=== PATIENT | male | born 1945 | race Caucasian/White ===

== ENCOUNTER 2018-03-17 07:40 | Day surgery (SDC) | payer OTHER ==
[2018-03-17] VITALS (13 sets, daily range): BP systolic 131–159; BP diastolic 66–88; PULSE 54–84; RESP 18–20; TEMP 97–97.9; O2SAT 93–100
[~2018-03-17] VITALS: Ht 170.2 cm; Wt 123.7 kg
[~2018-03-17 07:40] MED LIST: BETA80TA PO; CETI-1 PO; COMMODE 3-IN-11 MIS; FINA5TAB2 PO; FURO20TA PO; GETGO ROLLING W1 MI1; HYDR-3516 PO; LANTUS2P SQ; LIPI80TA PO; MECL1TAB42 PO; METF500 PO; MONT10TA2 PO; NEUR100C PO; Nystatin Powder TOPICAL; PERI PO; POTA20TA5 PO; PRAD150C PO; REST15CA PO; TUB TRANSFER BO1 MIS; WHEEMIS3
[2018-03-17] MEDS ORDERED: METOPROLOL TARTRATE 25 MG TAB PO PRN (08:15)
[2018-03-17] MEDS ORDERED: POVIDONE IODINE 5% (ANTISEPSIS KIT) 4 APPLICATIONS EACH NARE PRN (08:15)
[2018-03-17] MEDS ORDERED: LORazepam 1 MG TAB SL SCH (08:15)
[2018-03-17] MEDS ORDERED: LACTATED RINGER'S 1000 ML IV PRN (08:15)
[2018-03-17] MEDS ORDERED: CHLORHEXIDINE GLUCONATE 2 % 1 PACK (2 CLOTHS) TOPICAL PRN (08:15)
[2018-03-17] MEDS ORDERED: SODIUM CHLORID 0.9% 500 ML IV PRN (08:15)
[2018-03-17] MEDS ORDERED: CARI1TAB45 PO (08:35)
[2018-03-17] MEDS ORDERED: FLUT1SPR5 EACH NARE (08:35)
[2018-03-17] MEDS ORDERED: VENTAER INH (08:35)
[2018-03-17] MEDS ORDERED: OMEP20TA93 PO (08:35)
[2018-03-17] MEDS ORDERED: FURO40TA PO (08:35)
[2018-03-17] MEDS ORDERED: GABA300C5 PO (08:35)
[2018-03-17 08:42] LABS: BASOPHIL # 0.1 TH/MM3 (0-0.2); BASOPHIL % 1.8 % (0.0-2.0); EOSINOPHIL # 0.3 TH/MM3 (0-0.4); EOSINOPHIL % 5.3 % (0.0-4.0); HEMATOCRIT 30.7 % (39.0-51.0); HEMOGLOBIN 9.5 GM/DL (13.0-17.0); LYMPH % 23.2 % (9.0-44.0); LYMPHOCYTE # 1.2 TH/MM3 (1.0-4.8); MEAN CELL VOLUME 74.6 FL (80.0-100.0); MEAN CORPUSCULAR HGB CONC 30.9 % (32.0-36.0); MEAN PLATELET VOLUME 9.4 FL (7.0-11.0); MONO % 10.2 % (0.0-8.0); MONOCYTE # 0.5 TH/MM3 (0-0.9); NEUT % 59.5 % (16.0-70.0); PLATELET COUNT 222 TH/MM3 (150-450); RED BLOOD COUNT 4.12 MIL/MM3 (4.50-5.90); RED CELL DISTRIBUTION WIDTH 27.7 % (11.6-17.2); WHITE BLOOD COUNT 5.1 TH/MM3 (4.0-11.0)
[2018-03-17 08:52] LABS: INTERNATIONAL NORMALIZED RATIO 1.2 RATIO; PROTHROMBIN TIME - PATIENT 12.3 SEC (9.8-11.6)
[2018-03-17 09:05] LABS: CREATININE 1.56 MG/DL (0.60-1.30)
[2018-03-17 09:25] LABS: ACANTHOCYTES OCC (NORMAL); OVALOCYTES 1+ (NORMAL)
[2018-03-17] MEDS ORDERED: HEPARIN-NS/PF FLUSH BAG 2,000 ML IV FLUSH ONE (10:39)
[2018-03-17] MEDS ORDERED: FUROSEMIDE 40 MG/4 ML VIAL ONE (10:46)
[2018-03-17] MEDS ORDERED: HEPARIN SODIUM - IV 10,000 UNITS/10 ML VIAL ONE (10:46)
[2018-03-17] MEDS ORDERED: HEPARIN-D5W 25,000 U/250 ML 250 ML ONE (10:46)
[2018-03-17] MEDS ORDERED: ISOPROTERENOL INJ PREMIX 50 ML IV ONE (10:46)
[2018-03-17] MEDS ORDERED: PROTAMINE SULFATE 50 MG/5 ML VIAL ONE (10:46)
[2018-03-17] MEDS ORDERED: LEVOFLOXACIN 500 MG PREMIX INJ 100 ML IV ONE (11:15)
[2018-03-17] MEDS ORDERED: GLYCOPYRROLATE 1 MG/5 ML SYRINGE IV PUSH ONE (12:00)
[2018-03-17] MEDS ORDERED: PROPOFOL 200 MG/20 ML AMP IV ONE (12:00)
[2018-03-17] MEDS ORDERED: NEOSTIGMINE 5 MG/5 ML SYRINGE IV PUSH ONE (12:00)
[2018-03-17] MEDS ORDERED: ONDANSETRON HCL 4 MG/2 ML VIAL IV ONE (12:00)
[2018-03-17] MEDS ORDERED: PHENYLEPH/NS 1000 MCG/10 ML SYR IV ONE (12:00)
[2018-03-17] MEDS ORDERED: ROCURONIUM INJ 50 MG/5 ML SYRINGE IV PUSH ONE (12:00)
[2018-03-17] MEDS ORDERED: LIDOCAINE HCL 1% PF 5 ML SYRINGE OTHER ONE (12:00)
--- NOTE | 2018-03-17 13:41 | CATHPROC ---
Patient Name: JOBY CAMPBELL Study #: [id number] Initial MD: Brittney Colby Date of : 1945 Study Date: 03/17/2018 Cardiac Catheterization Report 03/17/2018 4:36:54 PM Financial #: [id number] 1 of 11 Patient Name: JOBY CAMPBELL Study #: [id number] Initial MD: Brittney Colby Date of : 1945 Study Date: 03/17/2018 Entire Case Report Patient Information Patient Name JOBY CAMPBELL Date of 1945 Age 72 years Financial # [id number] Gender M AlternateID Lab Number 2 Room Number DC07 Height (in) 67.0 Height (cm) 170.2 BSA 2.31 Weight (lbs) 272.4 Weight (kg) 123.8 Patient Address/Phone Number Home Address [facility] Home Phone Number [phone] [facility] [id number] Study Information Study Number Admission Scheduled Start Study Start [id number] Mar 17 2018 7:40AM 03/17/2018 Mar 17 2018 10:27AM [place] [facility] Electrophysiology Study Admit Source Facility Department Other [facility] - Prosecuting Attorney Physician and Clinical Staff Initial Brittney Fatima Customer Operations Representative Casandra Smith,RT(R) TECH2 Customer Operations Representative Kenzie Connor,ROUGHER FOR CEMENT TECH2 Other Anesthesia, SMELTER LINER Recorder Denisa Beckford,RN Recorder Lola Aldrich,RN Recorder Christ Beverly,RN Scrub Curry Best,RT(R) Procedures Performed Procedure Location (Site) Vessel Name Ablation Procedure Cardioversion ICE CATHETER INSERT RA Atruim RF Ablation LT. ATRIUM LT. ATRIUM Equipment 03/17/2018 4:36:54 PM Financial #: [id number] 2 of 11 Patient Name: JOBY CAMPBELL Study #: [id number] Initial MD: Brittney Colby Date of : 1945 Study Date: 03/17/2018 Time Professor Of Visual Arts Description Size Mfg Part Number Used/Scraped NEEDLE, TRANSSEPTAL NRG 98 [id number] 11:00 [facility] Used C1 *[id number] [employer]/ EP [id number] 11:00 KIT, TRANSDUCER / AFIB Used PACER *[id number] CATHETER, TACTICATH ABLAT BUNDLE 11:00 BUNDLE-[facility]. CLIF Used 65 BUNDLE *[id number]- BUNDLE [id number] CATHETER, FR7 OPTIMA SPIRAL 12:20 BUND[facility]. CLIF FR7 *[id number]- Used BUNDLE BUNDLE [id number] 11:00 BUNDLE-[employer]. CLIF CATHETER, JSN, QUAD BUNDLE FR 5 *[id number]- Used BUNDLE [id number] 11:00 BUNDLE-[employer]. CLIF CATHETER, JSN, QUAD BUNDLE FR 5 *[id number]- Used BUNDLE 52728-[id number] SET, COOL POINT TUBING 11:00 BUNDLE-[facility]. CLIF *[id number]- Used BUNDLE BUNDLE SHEATH, FR8.5 STEERABLE SM 11:00 BUNDLE-[facility]. CLIF 71CM [id number] Used 71CM BUNDLE [id number] 13:13 CARDIVA MEDICAL VASCADE, FR5 CLOSURE SYSTEM FR 5 Used *[id number] 13:13 CARDIVA MEDICAL VASCADE, FR6 CLOSURE SYSTEM FR 6\\7 Used *[id number] 13:13 CARDIVA MEDICAL VASCADE, FR6 CLOSURE SYSTEM FR 6\\7 Used *[id number] 13:13 CARDIVA MEDICAL VASCADE, FR6 CLOSURE SYSTEM FR 6\\7 Used *[id number] 13:13 CARDIVA MEDICAL VASCADE, FR6 CLOSURE SYSTEM FR 6\\7 Used *[id number] COVER, TRANSDUCER CABLE 612-113 11:00 [employer] Used ACUNAV *[id number] 11:00 CORDIS/PACER SHEATH, FR10 JARED 11CM FR 10 Used *[id number] 11:00 CORDIS/PACER SHEATH, FR9 JARED 11CM FR 9 [id number] Used [id number] 11:00 MED[employer] PACK, CCL CUSTOM * Used *1123411 11:00 MEDLINE PACER AVILA, LIMB * 2530 *[id number] Used 11:10 [employer] MEDICAL SHEATH, FR5.5 PRELUDE 11CM FR 5 [id number] Used [id number] 11:00 NAMIC TUBING, HIGH PRESSURE 48" 48" Used *[id number] 11:00 NAMIC TUBING, HIGH PRESSURE 48" 48" Used *[id number] 11:00 VENTURA MEDICAL BLANKET,WARM AIR CCL * Used *[id number] [id number] 11:00 [facility] MEDICAL ELECTRODE KIT, IRIS X SURFACE * Used *[id number] 285326 11:00 [facility] MEDICAL SHEATH, EPS, FR6 FAST CATH FR 6 Used *[id number] 11:00 [facility] MEDICAL SHEATH, EPS, FR7 FAST CATH FR 7 [id number] Used 03/17/2018 4:36:54 PM Financial #: [id number] Patient Name: JOBY CAMPBELL Study #: [id number] Initial MD: Brittney Colby Date of : 1945 Study Date: 03/17/2018 783263 11:00 [facility] MEDICAL SHEATH, EPS, FR8 FAST CATH FR 8 Used *[id number] 12:26 [facility] MEDICAL SHEATH, FR8.5 SL0 067169 Used CATHETER, ACUNAV FR10 ICE [id number] 11:58 ETHAN FR 10 Used (ETHAN) *[id number] [facility] PAD, ELECTROSURGICAL 11:00 * [id number] *[id number] Used SURGICAL GROUNDING (BLUE) Insurance Information Insurance Payor Private Health Insurance Third Republican Third Republican Number [employer] CHOICE PPO HUMCRPPO History: Allergies Allergy Reaction latex slight rash History: Risk Factors Family History of Hypertension Dyslipidemia Premature CAD Yes Yes Yes Cerebrovascular Chronic Lung Diabetes Diabetes Therapy Disease Disease Labs Hgb (g/dl) Hct (%) RBC (MIL/MM3) WBC (l/cumm) Platelets (thousands) 11.60-17.00 35.00-51.00 4.00-5.90 4.00-11.00 150.00-450.00 9.5 30.7 4.1 5.1 222 Glucose (mg/dl) BUN (mg/dl) Creatinine (mg/dl) BUN:Creatinine (1:x) 74.00-106.00 7.00-18.00 0.50-1.30 10.00-20.00 141 24 1.6 15 Na (meq/l) K (meq/l) 136.00-145.00 3.50-5.10 141 4.2 INR (PTT:PT) 0.90-1.10 1.2 Medication 03/17/2018 4:36:54 PM Financial #: [id number] Patient Name: JOBY CAMPBELL Study #: [id number] Initial MD: Brittney Colby Date of : 1945 Study Date: 03/17/2018 Medication Total Dose (Bolus/Oral) Medication Total Dosage/Unit 1% XYLOCAINE 40 mL HEPARIN 90671 units PROTAMINE 40 mg Medications (Bolus/Oral) Medication Time Given Dosage/Unit Administered By Reason 1% XYLOCAINE 03/17/2018 11:50:33 AM 20 mL Brittney Colby 20 mL 1% XYLOCAINE given in lab by Brittney Colby in Left Groin via Subcutaneous. Ordered by Nader Colby 1% XYLOCAINE 03/17/2018 11:54:29 AM 20 mL Brittney Colby 20 mL 1% XYLOCAINE given in lab by Brittney Colby in Right Groin via Subcutaneous. Ordered by Sam Colby. HEPARIN 03/17/2018 12:01:00 PM 5000 units Anesthesia, SMELTER LINER 5000 units HEPARIN given in lab by Anesthesia, SMELTER LINER via Peripheral IV. Ordered by Brittney Colby. HEPARIN 03/17/2018 12:12:52 PM 2000 units Anesthesia, SMELTER LINER 2000 units HEPARIN given in lab by Anesthesia, SMELTER LINER via Peripheral IV. Ordered by Brittney Colby. HEPARIN 03/17/2018 12:25:33 PM 2000 units Anesthesia, SMELTER LINER 2000 units HEPARIN given in lab by Anesthesia, SMELTER LINER via Peripheral IV. Ordered by Brittney Colby. HEPARIN 03/17/2018 12:40:01 PM 3000 units Anesthesia, SMELTER LINER As per physicians v erbal order 3000 units HEPARIN given in lab by Anesthesia, SMELTER LINER via Peripheral IV. Ordered by Brittney Colby. Reas on: As per physicians verbal order. HEPARIN 03/17/2018 12:53:52 PM 4000 units Anesthesia, SMELTER LINER As per physicians v erbal order 4000 units HEPARIN given in lab by Anesthesia, SMELTER LINER via Peripheral IV. Ordered by Brittney Colby. Reas on: As per physicians verbal order. PROTAMINE 03/17/2018 1:09:12 PM 40 mg Anesthesia, SMELTER LINER 40 mg PROTAMINE given in lab by Anesthesia, SMELTER LINER. Ordered by Brittney Colby. Medication (Drip) Medication Time Given Dosage/Unit Concentration/Unit Diluent (ml) Solution ISUPREL 03/17/2018 12:53:54 PM 5 mcg/min 1 mg 250 NaCl .9 5 mcg/min ISUPREL given in lab by Anesthesia, SMELTER LINER via Peripheral IV. Pump/Drip Flow = 75 ml/hr using NaCl .9 with a concentration of 1 mg in 250 ml. Ordered by Brittney Colby. LEVAQUIN 03/17/2018 11:15:33 AM 100 mL/hr 500 100 NaCl .9 100 mL/hr LEVAQUIN given in lab by Anesthesia, SMELTER LINER via Peripheral IV. Pump/Drip Flow = 0 ml/hr using NaCl .9 with a concentration of 500 in 100 ml. Ordered by Brittney Colby. Reason: As per physicians verbal order. FOR MEDELLIN CATHETER INSERTION 03/17/2018 4:36:54 PM Financial #: [id number] Patient Name: JOBY CAMPBELL Study #: [id number] Initial MD: Brittney Colby Date of : 1945 Study Date: 03/17/2018 Initial Case Assessment Cardiovascular HR Rhythm NIBP 103 AF 154/105 Edema Present Skin color Skin Moderate Flush Warm Dry Circulatory - Right Pulses Dorsalis Pedis 1 Scale (0,1,2,3,4,d) Circulatory - Left Pulses Dorsalis Pedis 1 Scale (0,1,2,3,4,d) Circulatory - Lower Extremities Color Lower Right Color Lower Left Normal Normal Neurological State Oriented to time-place- Alert Moves all extremities person Comment: 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 Respiration - General Respiration Rate SpO2 (%) (B/min) 20 96 03/17/2018 4:36:54 PM Financial #: [id number] Patient Name: JOBY CAMPBELL Study #: [id number] Initial MD: Brittney Colby Date of : 1945 Study Date: 03/17/2018 Final Case Assessment Cardiovascular HR Rhythm NIBP Chest Pain 92 sr 121/72 0 Edema Present Skin color Skin Severe Normal Warm Dry Circulatory - Right Pulses Dorsalis Pedis 1 Scale (0,1,2,3,4,d) Circulatory - Left Pulses Dorsalis Pedis 1 Scale (0,1,2,3,4,d) Circulatory - Lower Extremities Color Lower Right Color Lower Left Normal Normal Respiration - General Respiration Rate SpO2 (%) O2 (lpm) (B/min) 16 100 6 Chronological Log Time Study Chronological Log 10:44:47 Patient arrived via Bed. 10:44:48 Patient Name, D.O.B, / Armband Verified By R.N. 10:44:49 Consent signed by the physician and the patient and verified by the Prosecuting Attorney staff. 10:44:50 Pre-op and post- op instructions given; patient acknowledges understanding of instructions. 10:44:50 Verbal Stimulation=2 Physical Stimulation=2 Airway=2 Respiration=2 TOTAL=8. (0=absent, 1=li mited, 2=present) 10:44:51 Anesthesia at bedside. Assumes care of patient. 10:44:52 History and physical on the chart. 10:44:53 Patient has been NPO for More than 6Hrs. Skin Breakdown-BLE 4+edema with redness/warmth (cellulitis). Rt elbow to lower forearm red rash present. left groin 10:44:54 reddened. 10:44:57 Patient Warmer Placed on the Table. 03/17/2018 4:36:54 PM Financial #: [id number] 7 of 11 Patient Name: JOBY CAMPBELL Study #: [id number] Initial MD: Brittney Colby Date of : 1945 Study Date: 03/17/2018 10:44:59 Disposable Defibrillator Pads Placed On Patient. 10:45:00 A # 20 IV was noted in the Antecubital (right). Grade = 0 0.9% NaCl @ KVO 10:45:01 A # 20 IV was noted in the Antecubital (left). Grade = 0 0.9% NaCl @ KVO 10:53:16 Opal Prominences Protected Assessment: Initial Case Right Pulses: Juan Diego Ped=1 10:53:21 Left Pulses: Juan Diego Ped=1 Lower Right Extremities: Color=reddened calves bilaterally 10:53:24 Table restraints applied according to hospital policy 11:05:19 Anesthesiologist present for intubation. 11:10:33 Indwelling # 16FR [place] catheter inserted aseptically by MM and draining clear yellow urine to bedside drainage. 11:11:07 Bilateral groins prepped with 2% chlorhexidine. 11:14:28 A sterile drape was applied after a 3 minute drying time. 100 mL/hr LEVAQUIN given in lab by Anesthesia, SMELTER LINER via Peripheral IV. Pump/Drip Flow = 0 ml/hr using NaCl .9 with 11:15:33 a concentration of 500 in 100 ml. Ordered by Brittney Colby. Reason: As per physicians favian hawkins order. FOR MEDELLIN CATHETER INSERTION 11:16:35 MD paged 11:19:59 MD responded 11:38:44 MD arrived. Time Out. Correct patient, procedure, procedure equipment, site and side verified with physicia n present. Time 11:44:36 concurred by MD, individual staff and SMELTER LINER. Time Out #2 - Consents verified, patient in correct position, all results are labled and displa yed, safety precautions 11:44:38 taken, antibiotics administered. Time out concurred by MD, individual staff and SMELTER LINER in procedu re 11:44:40 Case Start 11:44:45 DENISSE in Progress 11:46:53 DENISSE Complete 11:50:33 20 mL 1% XYLOCAINE given in lab by Brittney Colby in Left Groin via Subcutaneous. Ordered by Brittney Colby. 11:50:46 Vascular access was obtained in the Fem Vein (left). 11:50:56 A SHEATH, EPS, FR7 FAST CATH FR 7 was advanced into the Fem Vein (left) using the Modified Seldinger technique. 11:51:36 A SHEATH, EPS, FR6 FAST CATH FR 6 was advanced into the Fem Vein (left) using the Modified Seldinger technique. 11:51:44 A SHEATH, FR10 JARED 11CM FR 10 was advanced into the Fem Vein (left) using the Modified S eldinger technique. 11:52:01 A SHEATH, FR5.5 PRELUDE 11CM FR 5 was advanced into the Fem Art (left) using the Modified S eldinger technique. 11:54:29 20 mL 1% XYLOCAINE given in lab by Brittney Colby in Right Groin via Subcutaneous. Ordered b y Brittney Colby. 11:54:38 Vascular access was obtained in the Fem Vein (right). 11:54:44 A SHEATH, EPS, FR8 FAST CATH FR 8 was advanced into the Fem Vein (right) using the Modified Seldinger technique. A CATHETER, JSN, QUAD BUNDLE FR 5 was advanced vis Fem Vein (left) and placed in the CS. Placem ent was visually 11:56:10 confirmed under fluoroscopy. A CATHETER, JSN, QUAD BUNDLE FR 5 was advanced vis Fem Vein (left) and placed in the HIS. Place ment was 11:56:21 visually confirmed under fluoroscopy. 11:58:15 CATHETER, ACUNAV FR10 ICE ([employer]) FR 10 Was Positioned. 03/17/2018 4:36:54 PM Financial #: [id number] Patient Name: JOBY CAMPBELL Study #: [id number] Initial MD: Brittney Colby Date of : 1945 Study Date: 03/17/2018 A SHEATH, FR8.5 STEERABLE SM 71CM BUNDLE 71CM was advanced into the Fem Vein (right) using the Modified 11:58:42 Seldinger technique. 12:00:44 Linda in 12:01:00 5000 units HEPARIN given in lab by Anesthesia, SMELTER LINER via Peripheral IV. Ordered by Nader Colby. 12:02:37 MM in DB out. 12:10:45 Activated Clotting Time Drawn 12:12:32 ACT (Normal Range 90-180) = 311 12:12:52 2000 units HEPARIN given in lab by Anesthesia, SMELTER LINER via Peripheral IV. Ordered by Nader Colby. 12:16:55 SLO introducer in use 12:17:10 A eps was advanced to the right atrium and passed through the septal wall to the left atriu m. 12:17:10 Linda out A CATHETER, FR7 OPTIMA SPIRAL BUNDLE FR7 was advanced vis Fem Vein (right) and placed in the LA . Placement 12:19:28 was visually confirmed under fluoroscopy. 12:20:31 mapping in progress 12:22:04 Activated Clotting Time Drawn 12:25:26 ACT (Normal Range 90-180) = 314 12:25:33 2000 units HEPARIN given in lab by Anesthesia, SMELTER LINER via Peripheral IV. Ordered by Nader Colby. 12:31:27 Activated Clotting Time Drawn 12:35:33 Mapping complete. Spiral catheter removed. A CATHETER, TACTICATH ABLAT 65 BUNDLE was advanced vis Fem Vein (right) and placed in the LA. P lacement was 12:37:03 visually confirmed under fluoroscopy. 12:38:34 RF Ablation of the LT. ATRIUM with a CATHETER, TACTICATH ABLAT 65 BUNDLE in progress. 12:39:52 ACT (Normal Range 90-180) = 316 3000 units HEPARIN given in lab by Anesthesia, SMELTER LINER via Peripheral IV. Ordered by Brittney Colby . Reason: As per 12:40:01 physicians verbal order. 12:46:04 Activated Clotting Time Drawn 12:49:16 ECG rhythm of AF noted. Patient cardioverted at 300 joules. Success synch 12:50:05 Monitor sr 12:52:58 ACT (Normal Range 90-180) = 304 4000 units HEPARIN given in lab by Anesthesia, SMELTER LINER via Peripheral IV. Ordered by Brittney Colby . Reason: As per 12:53:52 physicians verbal order. 5 mcg/min ISUPREL given in lab by Anesthesia, SMELTER LINER via Peripheral IV. Pump/Drip Flow = 75 ml/hr using NaCl .9 with 12:53:54 a concentration of 1 mg in 250 ml. Ordered by Brittney Colby. 13:03:12 Isuprel off 13:03:32 All catheter(s) removed without difficulty A SHEATH, FR9 JARED 11CM FR 9 was exchanged in the Fem Vein (right). This was necessary in ord er to minimize 13:04:44 site leakage. 13:05:28 PACU called. Spoke to Casandra 13:05:53 Bedside Report will be given. 13:09:12 40 mg PROTAMINE given in lab by Anesthesia, SMELTER LINER. Ordered by Brittney Colby. 13:09:25 VASCADE, FR5 CLOSURE SYSTEM FR 5 placement in the Fem Art (left) 03/17/2018 4:36:54 PM Financial #: [id number] Patient Name: JOBY CAMPBELL Study #: [id number] Initial MD: Brittney Colby Date of : 1945 Study Date: 03/17/2018 13:10:34 VASCADE, FR6 CLOSURE SYSTEM FR 6\\7 placement in the Fem Vein (right) 13:13:45 VASCADE, FR6 CLOSURE SYSTEM FR 6\\7 placement in the Fem Vein (left) 13:13:51 VASCADE, FR6 CLOSURE SYSTEM FR 6\\7 placement in the Fem Vein (left) 13:13:56 VASCADE, FR6 CLOSURE SYSTEM FR 6\\7 placement in the Fem Vein (left) 13:14:42 Activated Clotting Time Drawn 13:14:55 Sheaths removed; pressure applied to access sites by TF an DB. 13:19:35 ACT (Normal Range 90-180) = 205 13:30:30 Sterile dressings applied to sites 13:37:53 Defibrillator and ground pads removed. Skin intact. Assessment: Final Case, HR=92 BPM, Rhythm=sr, SGGE=268/72 mmhg, Chest Pain=0, Edema=Severe, Co isamar=Normal, Skin = Warm, Dry Right Pulses: Juan Diego Ped=1 13:37:57 Left Pulses: Juan Diego Ped=1 Lower Right Extremities: Color=Normal Lower Left Extremities: Color=Normal Respiration: Resp=16 B/min, KqX0=220 %, O2=6 lpm 13:38:00 Pt extubated. 13:40:35 Case End 13:40:42 No case complications noted. 13:44:46 [facility] 16:36:33 Ablation procedure performed: AFIB. 16:36:40 EP Procedure was performed. End Study - Contrast Media Used In Study Contrast Total Opened (mL) Total Used (mL) Total Wasted (mL) Unspecified 0 0 0 End Study - Maximum Contrast Load Max Contrast Load (mL) 386.9 End Study - Radiation Exposure Fluoro Time (minutes) 5.2 End Study - Sheaths Sheaths Pulled By Sheath Hold Time (min) Curry Best 5 03/17/2018 4:36:54 PM Financial #: [id number] Patient Name: JOBY CAMPBELL Study #: [id number] Initial MD: Brittney Colby Date of : 1945 Study Date: 03/17/2018 End Study - Patient Disposition Complications Transferred To Interventional Outcome No Telemetry Bed successful 03/17/2018 4:36:54 PM Financial #: [id number]
[2018-03-17] MEDS ORDERED: MIDAZOLAM HCL 2 MG/2 ML VIAL ONE (14:01)
[2018-03-17] MEDS ORDERED: DEXTROSE 50% IN WATER 50 ML SYRINGE ONE (14:24)
[2018-03-17] MEDS ORDERED: SODIUM CHLOR 0.9% 250 ML INJ 250 ML IV PRN (14:30)
[2018-03-17] MEDS ORDERED: ALBUTEROL SULFATE 90 MCG/ACT HFA 8 GM INHALER INH PRN (14:30)
[2018-03-17] MEDS ORDERED: LIDOCAINE HCL 1% 20 ML VIAL INFIL PRN (14:30)
[2018-03-17] MEDS ORDERED: ONDANSETRON ODT 4 MG TAB PO PRN (14:30)
[2018-03-17] MEDS ORDERED: LORazepam 2 MG/ML VIAL IV PUSH PRN (14:30)
[2018-03-17] MEDS ORDERED: BACITRACIN OINT 0.9 GM PKT TOP ONE (14:30)
[2018-03-17] MEDS ORDERED: ATROPINE SULFATE 1 MG/ML VIAL IV PUSH PRN (14:30)
[2018-03-17] MEDS ORDERED: oxyCODONE/ACETAMINOPHEN 5 MG/325 MG TAB PO PRN ×2 (14:30)
[2018-03-17] MEDS ORDERED: DEXTROSE 50% IN WATER 50 ML SYRINGE IV PRN (15:30)
[2018-03-17] MEDS ORDERED: DO NOT ADM ANY ANTICOAGULANT DRUGS PRN (15:30)
--- NOTE | 2018-03-17 18:13 | EKG ---
Date Performed: 03/17/2018 Time Performed: 08:36:54 PTAGE: 72 years EKG: Atrial fibrillation. Right bundle branch block Inferior/lateral ST-T changes are nonspecifi c Abnormal ECG PREVIOUS TRACING : 10/23/2017 21.17 Since the previous tracing, no significant change noted DOCTOR: Judy Hanna Interpretating Date/Time 03/17/2018 18:12:26
[2018-03-17] MEDS: FLUTICASONE PROPIONATE 50 MCG/ACT 16 GM NASAL SPRAY EACH NARE SCH (21:00)
[2018-03-17] MEDS: DABIGATRAN ETEXILATE 150 MG CAP PO SCH (21:00)
[2018-03-17] MEDS ORDERED: ATORVASTATIN 80 MG TAB PO SCH (21:00)
[2018-03-17] MEDS ORDERED: CARISOPRODOL 350 MG TAB PO PRN (21:00)
[2018-03-17] MEDS: FUROSEMIDE 40 MG TAB PO SCH (21:07)
[2018-03-17] MEDS: SOTALOL HCL 80 MG TAB PO SCH (21:07)
[2018-03-17] MEDS: GABAPENTIN 300 MG CAP PO SCH (21:07)
[2018-03-18] VITALS (19 sets, daily range): BP systolic 116–124; BP diastolic 60–93; PULSE 53–124; RESP 16–18; TEMP 97–98.1; O2SAT 96–100
[2018-03-18] MEDS: SODIUM CHLORID 0.9% 500 ML INJ 500 ML IV SCH ×2 (00:55→17:35)
[2018-03-18 06:42] LABS: INTERNATIONAL NORMALIZED RATIO 1.3 RATIO; PROTHROMBIN TIME - PATIENT 13.3 SEC (9.8-11.6)
[2018-03-18] MEDS ORDERED: PANTOPRAZOLE SOD 20 MG DELAYED RELEASE TAB PO SCH (09:00)
[2018-03-18] MEDS ORDERED: CETIRIZINE HCL 10 MG TAB PO SCH (09:00)
[2018-03-18] MEDS: FLUTICASONE PROPIONATE 50 MCG/ACT 16 GM NASAL SPRAY EACH NARE SCH (09:00)
[2018-03-18] MEDS ORDERED: INSULIN DETEMIR 100 UNITS/ML VIAL SQ SCH (09:00)
[2018-03-18] MEDS ORDERED: FINASTERIDE 5 MG TAB PO SCH (09:00)
[2018-03-18] MEDS: DABIGATRAN ETEXILATE 150 MG CAP PO SCH (09:00)
[2018-03-18] MEDS: FUROSEMIDE 40 MG TAB PO SCH (10:15)
[2018-03-18] MEDS: GABAPENTIN 300 MG CAP PO SCH (10:15)
[2018-03-18] MEDS: SOTALOL HCL 80 MG TAB PO SCH (10:15)
--- NOTE | 2018-03-18 16:30 | PD.CARD ---
Atrial Fibrillation Ablation PROCEDURE DATE: March 17, 2018 PROCEDURES PERFORMED: 1. Electrophysiology study on Isuprel infusion 2. CS cannulation 3. 3-D mapping 4. Transseptal approach 5. Right and left heart catheterization 6. Intracardiac echo 7. Radiofrequency ablation of atrial fibrillation 8. Pulmonary vein isolation 9. Posterior wall ablation 10. Mitral valve isolation 11. Mitral line creation 12. Left atrial tachycardia ablation 13. Floor line creation 14. Anterior and posterior ablation 15. Cardioversion INDICATIONS FOR THE PROCEDURE Mr. Cuenca is a 72-year-old male with atrial fibrillation, very symptomatic referred for electrophysiology study and ablation. The risks, the nature and the benefits of the procedure were clearly stated to him. The risks include pneumothorax, cardiac perforation, stroke, need for open heart surgery and even . The patient understood and agreed to proceed. DESCRIPTION OF THE PROCEDURE IN DETAIL As written informed consent was obtained prior to esophageal echocardiogram, the patient was kept on the table where he was prepped and draped in the usual sterile fashion. Conscious sedation was initiated and maintained throughout the procedure by the anesthesiologist. Once sedation was verified, the right and left inguinal areas were anesthetized with 2% Xylocaine. Using modified Seldinger technique, the left femoral vein was cannulated on three occasions, three guidewires were advanced. Over the wire a 6, 7 and a 10-English Hemaquet were advanced. Then the left femoral artery was cannulated on one occasion, one guidewire was advanced. Over the wire a 4-English Hemaquet was advanced. Then the right femoral vein was cannulated on one occasion, one guidewire was advanced. Over the wire a 8-English Hemaquet was advanced. Then under fluoroscopic guidance through the 6 and 7-English Hemaquet, two 5-English Lennie curved quadripolar electrophysiology catheters were advanced and placed around the His as well as coronary sinus. Basic interval was measured. The patient was in atrial fibrillation. Through the 10-English Hemaquet, a Cordis Hernandez Acu[employer] intracardiac echo catheter was advanced and placed at the right atrium. Multiple view was obtained. There no pericardial effusion, moderate to severe left atrial enlargement, pulmonary vein was seen, atrial septal was visualized. Then the 8-English Hemaquet in the right femoral vein was exchanged for [employer] transseptal sheath that was placed all the way to the superior vena cava. Through the sheath a Oniel needle was advanced. Then the sheath, the dilator and the needle were advanced until foci engaged. Once engaged, the needle was advanced. Transeptal was very difficult and complex. RF was delivered for 2 seconds. I was able to cross into the left atrium. Once the needle crossed, the dilator was advanced. Once the dilator crossed, the sheath was advanced. Once the sheath crossed, the dilator and the needle were removed. At this point I did flood the system and fluid movement was seen in the left atrium the indicates the sheath is in good position. The patient already received 12,000 units of heparin. The goal is to keep an ACT around 350 during ablation. Then through the sheath a [employer]. [place] 20 pulse circumferential catheter was advanced. Using Aqdot endocardial solution mapping system, a two-dimensional configuration of the left atrium was obtained. Points were taken at the left superior and inferior veins, right superior and inferior veins, mitral valve, and appendages. There was very poor signal in the atrium. Then through the sheath a St. Sachin TactiCath 65cm 3.5mm irrigated tipped mapping and radiofrequency ablation catheter was advanced. Esophageal probe was placed temperature monitoring during ablation. When it increased to 0.5 degrees Celsius above baseline, I moved to a different area of the atrium. First I did isolate the left superior and inferior vein. I Posterior was ablated. Then a floor line was created, a mitral line was isolated, then the mitral valve was isolated. At that point the patient was already in left atrial tachycardia. I did create a line from the floor to the roof area, passing by the left atrial appendage. I did remap the atrium. No significant signal seen. At this point I decided to proceed with cardioversion. A 200 sync biphasic joule was delivered that converted the patient into sinus rhythm. At that point I did advance the circumferential catheter again into the vein. There was no signal into the vein , pacing from the vein showed no conduction to the atrium. Isuprel infusion was initiated at 10 mcg for over 10 minutes. No tachyarrhythmia was induced, post Isuprel no tachyarrhythmia was induced. At that point the procedure was complete. All catheters were removed, atrial septal sheath was exchanged for 9- English Hemaquet, intracardiac echo showed no pericardial effusion. There is still good flow in the pulmonary vein. The patient is going to be transferred to the recovery room. No incident report. The patient tolerated the procedure. Blood loss was minimal. FINDINGS 1. Electrocardiogram: At baseline the patient was in atrial fibrillation, post procedure the patient was in sinus rhythm. 2. Basic interval: Base cycle length was around 750. Post ablation she was around 980 milliseconds. AH at 98 and HV at 80 milliseconds. 3. Tachyarrhythmia: Atrial fibrillation was mapped and ablated. Atrial tachycardia was ablated. The ablation was successful. CONCLUSION Successful electrophysiology study, mapping, radiofrequency ablation of atrial fibrillation, left atrial tachycardia, pulmonary vein isolation, posterior ablation, mitral valve isolation, mitral line creation, roof line creation, floor line creation, left and cardioversion. Very complex case. COMMENTS AND RECOMMENDATIONS The patient is going to be transferred to the telemetry unit. Will be observed and when stable can be discharged home. Due to very poor atrial signal, he will not be a candidate for ablation in the future,. If back into afib, medical management should be considered. Brittney Colby MD March 18, 2018 16:30
--- NOTE | 2018-03-18 16:34 | HHI.PR ---
Subjective Remarks Feeling ok Objective Vital Signs Date Time Temp Pulse Resp B/P (MAP) Pulse Ox O2 Delivery O2 Flow Rate FiO2 03/18/18 15:00 56 03/18/18 15:00 96 Room Air 03/18/18 14:00 56 03/18/18 13:00 58 03/18/18 12:00 62 03/18/18 11:00 98.1 57 16 119/69 (86) 96 03/18/18 11:00 96 Room Air 03/18/18 11:00 60 03/18/18 10:00 58 03/18/18 09:00 102 03/18/18 08:00 74 03/18/18 07:00 97.0 85 16 124/93 (103) 96 03/18/18 07:00 124 03/18/18 07:00 96 Room Air 03/18/18 06:00 65 03/18/18 05:00 58 03/18/18 04:00 56 03/18/18 03:00 100 Nasal Cannula 2.00 03/18/18 03:00 97.9 59 18 116/60 (78) 100 03/18/18 03:00 53 03/18/18 02:00 56 03/18/18 01:00 58 03/18/18 00:00 55 03/17/18 23:00 59 03/17/18 23:00 100 Nasal Cannula 2.00 03/17/18 23:00 97.8 59 18 131/68 (89) 100 03/17/18 22:00 54 03/17/18 21:00 56 03/17/18 20:00 97.5 56 18 141/74 (96) 100 03/17/18 20:00 60 03/17/18 20:00 100 Nasal Cannula 2.00 03/17/18 19:00 70 03/17/18 18:29 63 18 146/88 (107) 100 03/17/18 18:28 59 03/17/18 17:07 62 18 144/66 (92) 100 03/17/18 17:06 62 03/17/18 16:40 97.0 64 18 136/80 (98) 100 I/O 03/17/18 03/17/18 03/17/18 03/18/18 03/18/18 03/18/18 07:00 15:00 23:00 07:00 15:00 23:00 Intake Total 480 ml 480 ml Output Total 1000 ml 300 ml Balance -520 ml 180 ml Intake Oral 480 ml 480 ml IV Total 0 ml Output Urine Total 1000 ml 300 ml Bladder Scan Volume Amount 87 ml 87 ml # Bowel Movements 0 0 Result Diagram: 03/17/18 0810 03/17/18 0810 Imaging Alert , fully oriented Lungs: ventilated Heart: s1, S2 regular, no0 gallop Abdomen: obese, no mass Ext: no edema Current Medications Medications (Trade) Dose Ordered Sig/Tammy Route Start Time Stop Time Status Last Admin Sodium Chloride 500 ml @ 30 mls/hr [id number] IV 03/17/18 08:15 (Ativan) 1 mg CERTIFIED ART THERAPIST SL 03/17/18 08:15 03/20/18 08:14 Lactated Ringer's 1,000 ml @ 30 mls/hr Q24H PRN IV 03/17/18 08:15 03/20/18 08:14 Sodium Chloride 500 ml @ 30 mls/hr [id number] PRN IV 03/17/18 08:15 03/20/18 08:14 (Lopressor) 25 mg CERTIFIED ART THERAPIST PRN PO 03/17/18 08:15 03/20/18 08:14 (Betadine 5% Antisepsis Kit) 1 applic CERTIFIED ART THERAPIST PRN EACH NARE 03/17/18 08:15 03/20/18 08:14 (Chlorhexidine 2% Cloth) 3 pack CERTIFIED ART THERAPIST PRN TOPICAL 03/17/18 08:15 03/20/18 08:14 (Percocet 5-325 Mg) 1 tab Q4H PRN PO 03/17/18 14:30 (Percocet 5-325 Mg) 2 tab Q4H PRN PO 03/17/18 14:30 (Atropine Inj) 0.5 mg UNSCH PRN IV PUSH 03/17/18 14:30 (Zofran Odt) 4 mg Q4H PRN PO 03/17/18 14:30 (Proair Hfa Inh) 1 puff Q4H PRN INH 03/17/18 14:30 (Lipitor) 80 mg HS PO 03/17/18 21:00 03/17/18 21:06 (ZyrTEC) 10 mg DAILY PO 03/18/18 09:00 03/18/18 10:15 (Pradaxa) 150 mg BID PO 03/17/18 21:00 03/18/18 09:00 (Proscar) 5 mg DAILY PO 03/18/18 09:00 03/18/18 10:14 (Lasix) 40 mg BID PO 03/17/18 21:00 03/18/18 10:15 (Neurontin) 300 mg BID PO 03/17/18 21:00 03/18/18 10:15 (Levemir Inj) 35 units DAILY SQ 03/18/18 09:00 03/18/18 09:00 (Betapace) 80 mg BID PO 03/17/18 21:00 03/18/18 10:15 (Soma) 350 mg TID PRN PO 03/17/18 21:00 03/17/18 23:25 (Flonase John Spr) 1 spray BID EACH NARE 03/17/18 21:00 (Protonix) 20 mg DAILY PO 03/18/18 09:00 03/18/18 10:15 Assessment and Plan Problem List: (1) Atrial fibrillation ICD Codes: I48.91 - Unspecified atrial fibrillation Status: Chronic Plan: In a junctional rhythm SOP ablation Doing well Not a good candidate for an other ablation If back into afib, medical management (2) Obesity, Class II, BMI 35-39.9, with comorbidity ICD Codes: E66.9 - Obesity, unspecified Status: Chronic Plan: Patient advise to loose some weight Brittney Colby MD March 18, 2018 16:34
[2018-03-18 18:15] LABS: BILIRUBIN, URINE NEG (NEG); BLOOD, URINE NEG (NEG); GLUCOSE,URINE NEG (NEG); KETONE, URINE NEG (NEG); MUCUS URINE FEW /lpf (OCC); NITRITE,URINE NEG (NEG); PH, URINE 5.5 (5.0-8.5); URINE COLOR LIGHT-YELLOW (YELLW/STRAW); URINE LEUKOCYTE ESTERASE TRACE (NEG)
--- NOTE | 2018-03-18 22:18 | EKG ---
Date Performed: 03/18/2018 Time Performed: 05:13:12 PTAGE: 72 years EKG: Atrial fibrillation with slow ventricular response Right bundle branch block Possible anter ior infarct - age undetermined Inferior/lateral ST-T changes are nonspecific Abnormal ECG PREVIOUS TRACING : 03/17/2018 19.52 Since the previous tracing, no significant change noted DOCTOR: Vidal Raya Interpretating Date/Time 03/18/2018 22:18:34
--- NOTE | 2018-03-18 22:27 | EKG ---
Date Performed: 03/17/2018 Time Performed: 19:52:46 PTAGE: 72 years EKG: Atrial fibrillation with slow ventricular response Right bundle branch block Inferior/later al ST-T changes are nonspecific Low QRS voltages in precordial leads Abnormal ECG PREVIOUS TRACING : 03/17/2018 14.50 DOCTOR: Vidal Raya Interpretating Date/Time 03/18/2018 22:26:45
--- NOTE | 2018-03-18 22:35 | EKG ---
Date Performed: 03/17/2018 Time Performed: 14:50:13 PTAGE: 72 years EKG: ATRIAL FIBRILLATION RIGHT BUNDLE BRANCH BLOCK ABNORMAL ECG PREVIOUS TRACING : 03/17/2018 08.36 Since the previous tracing, no significant change noted DOCTOR: Vidal Raya Interpretating Date/Time 03/18/2018 22:34:06
== END 2018-03-18 19:15 | disposition home or self-care (01) ==
LOC: HDOC 07:40 → HDIC 07:40 → HCIS 16:02 → HDOC 03-18 19:15
PROVIDERS: ATTEND Internal Medicine Interventional Cardiology
DX: I48.91 Unspecified atrial fibrillation (principal); I47.1 Supraventricular tachycardia; I10 Essential (primary) hypertension; E78.5 Hyperlipidemia, unspecified; E66.9 Obesity, unspecified; Z68.41 Body mass index [BMI] 40.0-44.9, adult; Z79.01 Long term (current) use of anticoagulants; Z79.4 Long term (current) use of insulin
CPT/HCPCS: 80048; 81001; 82948; 85002; 85025; 85610; 85730; 86850; 86900; 86901; 92960; 93005; 93312; 93320; 93325; 93613; 93623; 93656; 93662; C1730; C1731; C1732; C1759; C1760; C1766; C2630; G0269; J1644; J1940; J1956; J2250; J2720; J3010; J2370; J2405; J2710; J7040

== ENCOUNTER 2018-08-31 07:45 | Inpatient (IN) ==
[2018-08-31] MEDS ORDERED: Metoprolol Tartrate 25 MG Tablet PO SCH (09:23)
[2018-08-31] MEDS ORDERED: Sodium Chlor 0.9% Inj 500 ML IV.SIG PRN (10:00)
[2018-08-31] MEDS ORDERED: Chlorhexidine Gluconate 2% 1 Pack (2 Cloths) TOPICAL ONE (10:00)
[2018-08-31 10:48] LABS: Baso % (Auto) 0.8 % (0.0-2.0); Eos # (Auto) 0.2 th/mm3 (0.0-0.4); Eos % (Auto) 3.4 % (0.0-4.0); Hematocrit 34.1 % (39.0-51.0); Hemoglobin 11.5 gm/dL (13.0-17.0); Lymph # (Auto) 1.4 th/mm3 (1.0-4.8); Mean Corpuscular HGB Conc 33.8 % (32.0-36.0); Mean Corpuscular Hemoglobin 31.6 pg (27.0-34.0); Mean Corpuscular Volume 93.4 fL (80.0-100.0); Mean Platelet Volume 8.7 fL (7.0-11.0); Mono # (Auto) 0.7 th/mm3 (0.0-0.9); Mono % (Auto) 10.7 % (0.0-8.0); Neut # (Auto) 3.9 th/mm3 (1.8-7.7); Neut % (Auto) 62.1 % (16.0-70.0); Platelet Count 126 th/mm3 (150-450); Red Blood Count 3.65 mil/mm3 (4.50-5.90); Red Cell Distribution Width 13.6 % (11.6-17.2); White Blood Count 6.3 th/mm3 (4.0-11.0)
[2018-08-31 10:58] LABS: Activated Partial Thrombo Time 35.9 sec (24.3-30.1); INR 1.2 Ratio; Prothrombin Time 12.2 sec (9.8-11.6)
[2018-08-31 11:17] LABS: Calcium 8.4 mg/dL (8.5-10.1); Magnesium 1.9 mg/dL (1.5-2.5); Potassium 3.8 meq/L (3.5-5.1)
--- NOTE | 2018-08-31 12:49 | MA ---
cc: Brittney Colby MD DATE: 08/31/2018 PROCEDURE: Cardioversion. INDICATIONS: Mr. Cuenca is a 72-year-old gentleman with typical episode of atrial fibrillation. He has around 4-5 previous ablations, not a candidate for redo ablation; was admitted for cardioversion and Tikosyn. The risks, the nature and the benefits of the procedure were clearly said to him. Risks include pneumothorax, cardiac perforation, stroke, need for open heart surgery and even . The patient understood and agreed to proceed. PROCEDURE: After written informed consent was obtained, the patient was brought to the DOC unit where he was evaluated by anesthesiologist. Anterolateral pad were placed. Subsequently a 200, then a 300 sync biphasic joules was delivered that converted the patient into sinus rhythm. No incident report. The patient tolerated the procedure well. CONCLUSION: Successful cardioversion. RECOMMENDATIONS: The patient can be kept in the hospital; Tikosyn will be initiated. Brittney Colby MD HS/ld , 10:29 AM , 10:36 AM
[2018-08-31] MEDS ORDERED: Dofetilide 250 MCG Capsule PO SCH (13:00)
[2018-08-31] MEDS: Furosemide 40 MG Tablet PO SCH ×2 (13:52→21:27)
[2018-08-31] MEDS: Gabapentin 300 MG Capsule PO SCH ×2 (13:53→21:30)
[2018-08-31] MEDS: Metoprolol Tartrate 25 MG Tablet PO SCH ×2 (13:53→21:27)
[2018-08-31] MEDS ORDERED: Dextrose 50% in Water 50 ML Vial IV.PUSH PRN (19:26)
[2018-08-31] MEDS: Insulin NovoLOG Aspart Correctional Sugar Inj SQ SCH (21:26)
[2018-08-31] MEDS: Pantoprazole Sodium 20 MG DR Tablet PO SCH (21:27)
[2018-09-01] MEDS ORDERED: Dofetilide 250 MCG Capsule PO ONE (07:00)
[2018-09-01] MEDS: Insulin NovoLOG Aspart Correctional Sugar Inj SQ SCH ×4 (08:07→21:31)
[2018-09-01] MEDS: Furosemide 40 MG Tablet PO SCH ×2 (09:11→21:36)
[2018-09-01] MEDS: Pantoprazole Sodium 20 MG DR Tablet PO SCH ×2 (09:12→21:37)
[2018-09-01] MEDS: Insulin Detemir Inj 1,000 UNIT/10 ML Vial SQ SCH (09:12)
[2018-09-01] MEDS: Gabapentin 300 MG Capsule PO SCH ×3 (09:12→17:09)
[2018-09-01] MEDS: Metoprolol Tartrate 25 MG Tablet PO SCH ×2 (09:13→21:36)
[2018-09-01] MEDS ORDERED: Acetaminophen 325 MG Tablet PO PRN (14:34)
--- NOTE | 2018-09-01 16:03 | ECG ---
Date Performed: 08/31/2018 Time Performed: 08:36:34 PTAGE: 72 years EKG: Atrial fibrillation with rapid ventricular response. Right bundle branch block Abnormal ECG PREVIOUS TRACING : 03/18/2018 05.13 Since the previous tracing, no significant change noted DOCTOR: Deuce Day Interpretating Date/Time 09/01/2018 16:00:57
--- NOTE | 2018-09-01 16:03 | ECG ---
Date Performed: 08/31/2018 Time Performed: 13:37:24 PTAGE: 72 years EKG: Atrial fibrillation Right bundle branch block Inferior/lateral ST-T changes are nonspecific Abnormal ECG PREVIOUS TRACING : 08/31/2018 08.36 DOCTOR: Deuce Day Interpretating Date/Time 09/01/2018 16:01:23
--- NOTE | 2018-09-01 19:52 | P.PN ---
Subjective Interval history: Feeling better No tachycardia Physical Exam Vital signs: Vital Signs 08/31/18 20:00 08/31/18 21:00 08/31/18 22:00 Temperature 98.3 F Pulse Rate 106 H 106 H 102 H Respiratory Rate 17 Blood Pressure 145/88 H Pulse Oximetry 96 08/31/18 23:00 09/01/18 00:00 09/01/18 01:00 Temperature 98.4 F Pulse Rate 65 84 94 H Respiratory Rate 15 Blood Pressure 129/60 Pulse Oximetry 95 09/01/18 02:00 09/01/18 03:00 09/01/18 04:00 Temperature 98.2 F Pulse Rate 92 H 99 H 97 H Respiratory Rate 16 Blood Pressure 124/71 Pulse Oximetry 96 09/01/18 05:00 09/01/18 06:00 09/01/18 07:00 Temperature 98.1 F Pulse Rate 82 106 H 84 Respiratory Rate 17 Blood Pressure 127/70 Pulse Oximetry 95 09/01/18 08:00 09/01/18 09:00 09/01/18 10:00 Temperature Pulse Rate 93 H 92 H 84 Respiratory Rate Blood Pressure Pulse Oximetry 09/01/18 11:00 09/01/18 12:00 09/01/18 13:00 Temperature 98.1 F Pulse Rate 80 104 H 71 Respiratory Rate 16 Blood Pressure 151/87 H Pulse Oximetry 97 09/01/18 14:00 09/01/18 15:00 09/01/18 15:55 Temperature 97.8 F Pulse Rate 94 H 94 H Respiratory Rate 18 18 Blood Pressure 128/82 Pulse Oximetry 97 09/01/18 16:00 09/01/18 17:00 09/01/18 18:00 Temperature Pulse Rate 79 93 H 90 Respiratory Rate Blood Pressure Pulse Oximetry Intake & Output 09/01/18 09/01/18 09/02/18 06:59 18:59 06:59 Intake Total 720 / 720 710 / 710 Output Total 960 / 960 725 / 725 Balance -240 / -240 -15 / -15 Weight 120 kg Intake: Oral 720 / 720 710 / 710 Output: Urine 960 / 960 725 / 725 Other: # Voids 3 Weight On Admission 120 kg - Constitutional no acute distress - Routine HEENT Exam Head: Present: normocephalic Eye: Present: PERRL ENT: Present: mucous membranes moist - Routine Respiratory Exam Present: CTA bilaterally - Routine Cardiovascular Exam Present: RRR, S1, S2 - Routine Abdominal Exam Present: soft - Routine Neurological Exam Present: alert, oriented X3 - Detailed Neurological Exam: Coma Scale Eye Opening: Spontaneous Verbal Response: Oriented Motor Response: Obey commands [place] Coma Scale Total: 15 Results - Labs CBC & Chem 7: 08/31/18 10:35 08/31/18 10:35 Laboratory Results - last 24 hr 08/31/18 09/01/18 09/01/18 21:19 07:50 11:13 POC Glucose 190 H 137 H 206 H 09/01/18 09/01/18 12:23 15:27 POC Glucose 218 H 245 H Assessment and Plan - Assessment (1) Atrial fibrillation Code(s): I48.91 - Unspecified atrial fibrillation Status: Acute - Plan In sinus rhythm doing well QT430 ms Will continue on Tikosyn possible discharge on case discussed with patient
[2018-09-01] MEDS: Dofetilide 250 MCG Capsule PO SCH (21:36)
[2018-09-02] MEDS: Pantoprazole Sodium 20 MG DR Tablet PO SCH ×2 (08:20→21:44)
[2018-09-02] MEDS: Gabapentin 300 MG Capsule PO SCH ×3 (08:20→17:47)
[2018-09-02] MEDS: Metoprolol Tartrate 25 MG Tablet PO SCH (08:20)
[2018-09-02] MEDS: Dofetilide 250 MCG Capsule PO SCH ×2 (08:21→21:44)
[2018-09-02] MEDS: Furosemide 40 MG Tablet PO SCH ×2 (08:21→21:44)
[2018-09-02] MEDS: Insulin Detemir Inj 1,000 UNIT/10 ML Vial SQ SCH (08:21)
[2018-09-02] MEDS: Insulin NovoLOG Aspart Correctional Sugar Inj SQ SCH ×4 (08:27→21:45)
--- NOTE | 2018-09-02 13:26 | ECG ---
Date Performed: 09/02/2018 Time Performed: 06:36:20 PTAGE: 72 years EKG: Sinus tachycardia Right bundle branch block Inferior infarct - age undetermined Lateral T w ave changes may be due to myocardial ischemia Abnormal ECG NO PREVIOUS TRACING DOCTOR: Tres Plummer Interpretating Date/Time 09/02/2018 13:25:02
--- NOTE | 2018-09-02 13:34 | ECG ---
Date Performed: 09/01/2018 Time Performed: 20:07:34 PTAGE: 72 years EKG: Atrial fibrillation with paroxysmal idioventricular rhythm or aberrant ventricular conducti on. IV conduction defect Inferior/lateral ST-T changes are nonspecific Abnormal ECG PREVIOUS TRACING : 08/31/2018 13.37 DOCTOR: Tres Plummer Interpretating Date/Time 09/02/2018 13:31:20
[2018-09-02] MEDS ORDERED: Dextrose 50% in Water 50 ML Vial IV.PUSH PRN (14:08)
--- NOTE | 2018-09-02 17:26 | P.PN ---
Subjective Interval history: Tired Physical Exam Vital signs: Vital Signs 09/01/18 18:00 09/01/18 19:00 09/01/18 20:00 Temperature 97.7 F Pulse Rate 90 100 H 94 H Respiratory Rate 16 Blood Pressure 147/76 H Pulse Oximetry 97 09/01/18 21:00 09/01/18 22:00 09/01/18 23:00 Temperature 97.8 F Pulse Rate 82 90 62 Respiratory Rate 16 Blood Pressure 143/87 H Pulse Oximetry 97 09/02/18 00:00 09/02/18 01:00 09/02/18 02:00 Temperature Pulse Rate 92 H 84 98 H Respiratory Rate Blood Pressure Pulse Oximetry 09/02/18 03:00 09/02/18 04:00 09/02/18 05:00 Temperature 97.9 F Pulse Rate 104 H 74 62 Respiratory Rate 16 Blood Pressure 117/55 L Pulse Oximetry 96 09/02/18 06:00 09/02/18 07:00 09/02/18 08:00 Temperature 97.7 F Pulse Rate 108 H 109 H 114 H Respiratory Rate 18 Blood Pressure 154/85 H Pulse Oximetry 94 L 09/02/18 09:00 09/02/18 10:00 09/02/18 11:00 Temperature 97.9 F Pulse Rate 128 H 98 H 102 H Respiratory Rate 18 Blood Pressure 167/99 H Pulse Oximetry 97 09/02/18 12:00 09/02/18 13:00 09/02/18 14:00 Temperature Pulse Rate 102 H 86 98 H Respiratory Rate Blood Pressure Pulse Oximetry Intake & Output 09/01/18 09/02/18 09/02/18 18:59 06:59 18:59 Intake Total 710 / 710 720 / 720 Output Total 725 / 725 1750 / 1750 Balance -15 / -15 -1030 / -1030 Weight 121 kg Intake: Oral 710 / 710 720 / 720 Output: Urine 725 / 725 1750 / 1750 Other: # Voids 3 Date of Last Bowel Movement 09/01/18 - Constitutional no acute distress - Routine HEENT Exam Head: Present: normocephalic Eye: Present: PERRL ENT: Present: mucous membranes moist - Routine Respiratory Exam Present: CTA bilaterally - Routine Cardiovascular Exam Present: RRR, S1, S2, tachycardia - Routine Neurological Exam Present: alert, oriented X3 - Detailed Neurological Exam: Coma Scale Eye Opening: Spontaneous Verbal Response: Oriented Motor Response: Obey commands [place] Coma Scale Total: 15 Results - Labs CBC & Chem 7: 08/31/18 10:35 08/31/18 10:35 Laboratory Results - last 24 hr 09/01/18 09/02/18 09/02/18 20:32 08:19 13:23 POC Glucose 275 H 186 H 256 H Assessment and Plan - Assessment (1) Atrial fibrillation Code(s): I48.91 - Unspecified atrial fibrillation Status: Acute - Plan Back into left atrial tach HR high cardioversion fail CC 50% Dofetelide will be increased to 500 Mcg bid Metoprol will be increased also Will be reevaluated tomorrow
--- NOTE | 2018-09-02 18:59 | MR ---
cc: Brittney Colby MD DATE: 09/02/2018 PROCEDURE PERFORMED: Cardioversion. INDICATION: Mr. Cuenca is a 72-year-old gentleman with atrial fibrillation, on Tikosyn, to undergo cardioversion. The risks, the nature and the benefits of the procedure were clearly stated to him. Risks included cardiac arrest, need for endotracheal intubation and even . He understood and agreed to proceed. DESCRIPTION OF PROCEDURE: After written informed consent was obtained, the patient was evaluated by the anesthesiologist. Once sedation was verified, anterolateral pads were placed and 200, then 300 and 360 joules were delivered. The patient converted back into sinus rhythm for a few seconds and then back in atrial tachyarrhythmia. At that point, the procedure was complete. I decided not to pursue any further cardioversion. There is no significant signal in the left atrium. I am going to modify his medication. If this gentleman is stable in the morning, he will be discharged home. MD ANGELA Quinones/thi , 05:21 PM , 05:26 PM
[2018-09-02] MEDS: Metoprolol Tartrate 50 MG Tablet PO SCH (21:44)
[2018-09-03] MEDS: Pantoprazole Sodium 20 MG DR Tablet PO SCH ×2 (08:55→21:06)
[2018-09-03] MEDS: Gabapentin 300 MG Capsule PO SCH ×3 (08:55→17:10)
[2018-09-03] MEDS: Dofetilide 250 MCG Capsule PO SCH ×2 (08:55→21:05)
[2018-09-03] MEDS: Furosemide 40 MG Tablet PO SCH ×2 (08:55→21:05)
[2018-09-03] MEDS: Metoprolol Tartrate 50 MG Tablet PO SCH ×2 (08:55→21:06)
[2018-09-03] MEDS: Insulin Detemir Inj 1,000 UNIT/10 ML Vial SQ SCH (09:17)
[2018-09-03] MEDS: Insulin NovoLOG Aspart Correctional Sugar Inj SQ SCH ×4 (09:18→21:06)
--- NOTE | 2018-09-03 16:12 | ECG ---
Date Performed: 09/02/2018 Time Performed: 19:18:32 PTAGE: 72 years EKG: Suspect sinus or atrial tachycardia Right bundle branch block Inferior infarct - age undete rmined Since previous tracing, no significant change noted Abnormal ECG PREVIOUS TRACING : 09/02/2018 06.36 DOCTOR: Mike Calle Interpretating Date/Time 09/03/2018 16:11:10
--- NOTE | 2018-09-03 16:14 | ECG ---
Date Performed: 09/03/2018 Time Performed: 07:55:48 PTAGE: 72 years EKG: Suspect atrial verses ectopic tachycardia Right bundle branch block Inferior infarct - age undetermined Lateral T wave changes may be due to myocardial ischemia Since previous tracing, no sign ificant change noted Abnormal ECG PREVIOUS TRACING : 09/02/2018 19.18.32 DOCTOR: Mike Calle Interpretating Date/Time 09/03/2018 16:13:36
[2018-09-03 17:55] LABS: Calcium 8.9 mg/dL (8.5-10.1); Carbon Dioxide 28.9 meq/L (21.0-32.0); Potassium 4.1 meq/L (3.5-5.1)
[2018-09-04] MEDS: Metoprolol Tartrate 50 MG Tablet PO SCH (09:21)
[2018-09-04] MEDS: Insulin NovoLOG Aspart Correctional Sugar Inj SQ SCH ×2 (09:21→12:16)
[2018-09-04] MEDS: Furosemide 40 MG Tablet PO SCH (09:22)
[2018-09-04] MEDS: Gabapentin 300 MG Capsule PO SCH ×2 (09:22→13:42)
[2018-09-04] MEDS: Pantoprazole Sodium 20 MG DR Tablet PO SCH (09:22)
[2018-09-04] MEDS: Dofetilide 250 MCG Capsule PO SCH (09:22)
[2018-09-04] MEDS: Insulin Detemir Inj 1,000 UNIT/10 ML Vial SQ SCH (09:26)
[2018-09-04 09:37] VITALS: RESP 18; TEMP 98; O2SAT 97
[2018-09-04 13:35] VITALS: PULSE 89
[2018-09-04 13:42] VITALS: BP 130/62
--- NOTE | 2018-09-04 16:52 | MD ---
cc: Brittney Colby MD DATE OF DISCHARGE: 09/04/2018 HISTORY OF PRESENT ILLNESS: Mr. Cuenca is a 72-year-old gentleman with history of atrial fibrillation, multiple ablations in the past. I did attempt a cardioversion on him. The patient was back again in atrial fibrillation, left atrial tachycardia. Subsequently, he was admitted on 08/31/2018. A cardioversion was attempted again. He was in atrial tachyarrhythmia, atrial fibrillation. Tikosyn was initiated. I did start him on Tikosyn at 250 mcg twice a day. On 09/02/2018, I did attempt cardioversion. Creatinine was improved. The patient back again in atrial fibrillation. I did increase the Tikosyn to 500 mcg twice a day. Creatinine clearance was 50%. Yesterday, the gentleman was seen and he was offered to be discharged home, but gentleman decided he wanted to stay one more day because he does not feel comfortable going home. Today he was supposed to be discharged home. The gentleman was alert, fully oriented. He decided to leave the hospital AMA. Blood pressure before leaving the hospital was 130/62, pulse 89 and regular, respiratory rate 18. The gentleman was stable. The Tikosyn was not being reinitiated in this gentleman as an outpatient. The last QT interval was at 370 milliseconds again. If the patient gentleman does not reinitiate his Tikosyn tonight, that will not be able to be reinitiated as an outpatient. He has to be readmitted for the medication again. The gentleman's case was discussed with him extensively yesterday afternoon. He took on himself, the decision to go home. MD ANGELA Quinones/reilly/dillon , 03:58 PM , 04:07 PM
--- NOTE | 2018-09-04 20:04 | ECG ---
Date Performed: 09/03/2018 Time Performed: 19:11:58 PTAGE: 72 years EKG: Suspect Sinus rhythm witha marked first degree AV block and a Right bundle branch block Abnormal ECG PREVIOUS TRACING :09/03/2018 @07.55 Compared to previous tracing,similar. DOCTOR: Jeremi Cole Interpretating Date/Time 09/04/2018 20:03:33
--- NOTE | 2018-09-07 00:51 | ECG ---
Date Performed: 09/04/2018 Time Performed: 07:35:22 PTAGE: 72 years EKG: Probable Sinus rhythm with first degree AV block Right bundle branch block Inferior infarct - age undetermined Lateral T w ave changes may be due to myocardial ischemia Abnormal ECG Since the PREVIOUS TRACING , no significant change noted DOCTOR: Saturnino Renae Interpretating Date/Time 09/07/2018 00:50:15
== END 2018-09-04 15:45 | disposition left against medical advice (07) ==
LOC: HDOC 07:45 → HDIC 07:48 → HCPC 14:10
PROVIDERS: ADMIT Internal Medicine Interventional Cardiology; ATTEND Internal Medicine Interventional Cardiology
CPT/HCPCS: 80048; 82948; 82962; 83735; 85025; 85610; 85730; 93005; J1815; J2704